=== PATIENT | female | born 1990 | race Caucasian/White ===

== ENCOUNTER 2020-09-22 20:43 | Emergency (ER) | payer OTHER ==
[~2020-09-22] VITALS: Ht 165.1 cm; Wt 109.8 kg
[2020-09-22 20:45] VITALS: BP 114/65
--- NOTE | 2020-09-22 20:46 | NUR ---
PT TEO BLS. TAKEN TO BED 10
--- NOTE | 2020-09-22 21:02 | NUR ---
Dr. Mclean examining patient.
[2020-09-22] MEDS ORDERED: ALBUTEROL HFA MDI 90 MCG/ACTUATION 8 GM INH ONE (21:05)
--- NOTE | 2020-09-22 21:10 | NUR ---
PT C/O OF SOB SO SHE CALLED 911. PT RECEIVED POSITIVE COVID RESULTS YESTERDAY. SYMPTOMS INCLUDE N/V/D X 1 DAY AND DRY NONPRODUCTIVE COUGH, SORE THROAT DUE TO COUGHING. PT 02 SAT ON RA 96-97%. LUNG SOUNDS COARSE THROUGHOUT. PT DENIES CHEST PAIN. AFEBRILE. PT PLACED IN GOWN, BED IN LOWEST POSITION AND SIDERAIL UP X 1. NKA NO HX
--- NOTE | 2020-09-22 21:15 | NUR ---
X-RAY AT BEDSIDE
--- NOTE | 2020-09-22 21:41 | NUR ---
RESPIRATOPRY AT BEDSIDE
--- NOTE | 2020-09-22 21:43 | NUR ---
2x PUFF ADM ALONG W/ EDUCATION OF PROPER TECHNIQUES FOR MDI + MED SIDE EFFECTS
--- NOTE | 2020-09-22 22:10 | NUR ---
PT PLACED ON PORTABLE O2 SAT AND AMBULATED AROUND ROOM 10, O2 SAT STAYED AT 95-96%. MD ARAGON AWARE
[2020-09-22 22:41] VITALS: BP 117/69
--- NOTE | 2020-09-22 22:42 | NUR ---
Patient discharged with v/s stable. Written and verbal after care instructions given and explained. Patient alert, oriented and verbalized understanding of instructions. Ambulatory with steady gait. All questions addressed prior to discharge. ID band removed. Patient advised to follow up with PMD. Rx of ALBUTEROL INHALER, AZITHROMYCIN, AND GUAIFENESIN DM given. Patient educated on indication of medication including possible reaction and side effects. Opportunity to ask questions provided and answered.
== END 2020-09-22 22:42 | disposition home or self-care (01) ==
LOC: MED 20:43
DX: J18.9 Pneumonia, unspecified organism (principal); Z20.828 Contact with and (suspected) exposure to other viral communicable diseases
CPT/HCPCS: 71045; 94664; 99285

== ENCOUNTER 2022-05-05 14:40 | Emergency (ER) | payer OTHER ==
[~2022-05-05] VITALS: Ht 167.6 cm; Wt 101.7 kg
[2022-05-05 15:34] VITALS: BP 104/66
[2022-05-05] MEDS ORDERED: KETOROLAC 30 MG/ML VIAL IM ONE (15:45)
--- NOTE | 2022-05-05 16:10 | NUR ---
XRAY AT BEDSIDE
--- NOTE | 2022-05-05 16:10 | NUR ---
38YR OLD FEMALE BIB SELF C/O LEFT FOOT/ANKLE PAIN AND SWELLING X4DAYS. PAIN LEVEL 8/10. SWELLING AND SOME BRUISING TO AREA. PT STATES WAS SCRATCHING SKIN WHEN EZEMA HAD A BREAK OUT AND BROKE THE SKIN. SINCE THEN FOOT HAS BEEN GETTING SWOLLEN AND PAINFUL. DENIES ANY TRAUMA OR INJURY. GOOD SENSATION AND CMS TO EXTREMITY. PT A&OX4. LEG IS SIGHTLY ELEVATED IN BED. SIDE RAILS UP X2 BED AT LOWEST POSITION. NKDA NO MED HX
[2022-05-05] MEDS ORDERED: SULF-58 PO (16:31)
[2022-05-05 16:42] VITALS: BP 107/55
--- NOTE | 2022-05-05 16:43 | NUR ---
Chart checked and completed. The patient's care was reviewed and supervised by Beatriz Sen RN.
== END 2022-05-05 16:42 | disposition home or self-care (01) ==
LOC: MED 14:40
DX: S90.512A Abrasion, left ankle, initial encounter (principal); L03.116 Cellulitis of left lower limb; Z79.2 Long term (current) use of antibiotics; X58.XXXA Exposure to other specified factors, initial encounter; Y92.89 Other specified places as the place of occurrence of the external cause; Y93.89 Activity, other specified; Y99.8 Other external cause status
CPT/HCPCS: 73610; 96372; 99283; J1885

== ENCOUNTER 2022-09-04 02:30 | Emergency (ER) | payer OTHER ==
[~2022-09-04] VITALS: Ht 165.1 cm; Wt 109.8 kg
[~2022-09-04 02:30] MED LIST: SULF-58 PO
[2022-09-04 02:36] VITALS: BP 127/77
--- NOTE | 2022-09-04 02:39 | NUR ---
PT AMBULATES TO BED 11 WITH STEADY GAIT
--- NOTE | 2022-09-04 03:00 | NUR ---
32/F BIB SELF C/C PT NEEDS MEDICATION FOR ECZEMA. REPORTS RUNNING OUT OF CURRENT MEDICATION. PMHX ECZEMA
[2022-09-04] MEDS ORDERED: KEN.1O TP (03:19)
[2022-09-04 03:34] VITALS: BP 127/77
--- NOTE | 2022-09-04 03:34 | NUR ---
Patient discharged with v/s stable. Written and verbal after care instructions given and explained. Patient alert, oriented and verbalized understanding of instructions. Ambulatory with steady gait. All questions addressed prior to discharge. ID band removed. Patient advised to follow up with PMD. Rx of KENALOG 0.1 given. Patient educated on indication of medication including possible reaction and side effects. Opportunity to ask questions provided and answered.
== END 2022-09-04 03:34 | disposition home or self-care (01) ==
LOC: MED 02:30
DX: L30.9 Dermatitis, unspecified (principal); Z79.899 Other long term (current) drug therapy
CPT/HCPCS: 99283

== ENCOUNTER 2022-10-28 23:56 | Emergency (ER) | payer OTHER ==
[~2022-10-28] VITALS: Ht 165.1 cm; Wt 106.6 kg
[~2022-10-28 23:56] MED LIST changes: +KEN.1O TP
[2022-10-29 00:13] VITALS: BP 123/74
--- NOTE | 2022-10-29 01:07 | NUR ---
COVID-19 and flu swabs collected and sent to lab.
--- NOTE | 2022-10-29 01:17 | NUR ---
PT TO BED #12
--- NOTE | 2022-10-29 01:30 | NUR ---
C/O fever x 3 days. Patient reported, had cough, congestion,fever, chills and sore throat for 3 days. PMHx: DENIES
[2022-10-29] MEDS ORDERED: ACET-10509 PO (01:52)
[2022-10-29] MEDS ORDERED: TAM75 PO (01:52)
[2022-10-29] MEDS ORDERED: ROBAC PO (01:52)
[2022-10-29 02:05] VITALS: BP 123/74
--- NOTE | 2022-10-29 02:05 | NUR ---
Patient discharged with v/s stable. Written and verbal after care instructions given and explained. Patient alert, oriented and verbalized understanding of instructions. Ambulatory with steady gait. All questions addressed prior to discharge. ID band removed. Patient advised to follow up with PMD. Rx of TYLENOL, TAMIFLU, GUAIFENESIN given. Patient educated on indication of medication including possible reaction and side effects. Opportunity to ask questions provided and answered.
== END 2022-10-29 02:05 | disposition home or self-care (01) ==
LOC: MED 23:56
DX: J10.1 Influenza due to other identified influenza virus with other respiratory manifestations (principal); Z20.822 Contact with and (suspected) exposure to COVID-19; Z79.899 Other long term (current) drug therapy
CPT/HCPCS: 99283

== ENCOUNTER 2023-05-02 08:08 | Emergency (ER) | payer OTHER ==
[~2023-05-02] VITALS: Ht 167.6 cm; Wt 112.5 kg
[~2023-05-02 08:08] MED LIST changes: +ACET-10509 PO; +ROBAC PO; +TAM75 PO
[2023-05-02 08:12] VITALS: BP 116/57; PULSE 76; RESP 20; TEMP 98; O2SAT 100
[2023-05-02] MEDS ORDERED: KEN.1O80 TP (08:55)
[2023-05-02] MEDS ORDERED: CREA1CRE TP (08:55)
[2023-05-02] MEDS ORDERED: IBUP-2213 PO (08:56)
--- NOTE | 2023-05-02 09:07 | NUR ---
Patient discharged with v/s stable. Written and verbal after care instructions given and explained. Patient alert, oriented and verbalized understanding of instructions. Ambulatory with to home. All questions addressed prior to discharge. ID band removed. Patient advised to follow up with PMD. Rx of KENALOG, MOTIN, CETAPHIL given. Patient educated on indication of medication including possible reaction and side effects. Opportunity to ask questions provided and answered.
== END 2023-05-02 09:07 | disposition home or self-care (01) ==
LOC: MED 08:08
DX: R21 Rash and other nonspecific skin eruption (principal); L30.9 Dermatitis, unspecified; Z79.899 Other long term (current) drug therapy
CPT/HCPCS: 99283

== ENCOUNTER 2023-11-03 10:43 | Emergency (ER) | payer OTHER ==
[~2023-11-03] VITALS: Ht 167.6 cm; Wt 127.5 kg
[~2023-11-03 10:43] MED LIST changes: +CREA1CRE TP; +IBUP-2213 PO; +KEN.1O80 TP
[2023-11-03 10:56] VITALS: BP 109/68; PULSE 63; RESP 20; TEMP 97.6; O2SAT 97
[2023-11-03] MEDS ORDERED: KETOROLAC 30 MG/ML VIAL IM ONE (11:40)
[2023-11-03 11:45] LABS: APPEARANCE,URINE SL CLOUDY (CLEAR); BILIRUBIN,URINE NEGATIVE (NEGATIVE); BLOOD, URINE NEGATIVE (NEGATIVE); COLOR,URINE YELLOW (YELLOW); LEUKOCYTE ESTERASE ,URINE 2+ (NEGATIVE); NITRITE, URINE NEGATIVE (NEGATIVE); PROTEIN,URINE NEGATIVE (NEGATIVE); UGLUCOSE NEGATIVE (NEGATIVE); UROBILINOGEN,URINE 0.2 EU/dL (0.2 - 1)
[2023-11-03 11:48] LABS: RBC,URINE 0 /HPF (0-5)
[2023-11-03 11:49] LABS: BACTERIA,URINE 2+ /HPF (None Seen); MUCUS,URINE None Seen /LPF (None Seen); SQUAMOUS EPITHELIAL CELL,UR 0-3 (FEW) /LPF (0-3 (FEW))
[2023-11-03] MEDS ORDERED: NAPR-1704 PO (11:59)
[2023-11-03] MEDS ORDERED: CYCL-711 PO (11:59)
[2023-11-03] MEDS ORDERED: CAPS1ADH5 TP (11:59)
[2023-11-03 12:14] VITALS: BP 134/76; PULSE 84; RESP 20; TEMP 98.2; O2SAT 98
== END 2023-11-03 12:09 | disposition home or self-care (01) ==
LOC: MED 10:43
DX: S39.012A Strain of muscle, fascia and tendon of lower back, initial encounter (principal); X58.XXXA Exposure to other specified factors, initial encounter; Y93.89 Activity, other specified; Y92.89 Other specified places as the place of occurrence of the external cause; Y99.8 Other external cause status
CPT/HCPCS: 81001; 81025; 87086; 96372; 99283; J1885

== ENCOUNTER 2024-04-17 13:37 | Emergency (ER) | payer BC, OTHER ==
[~2024-04-17] VITALS: Ht 165.1 cm; Wt 119.3 kg
[~2024-04-17 13:37] MED LIST changes: +CAPS1ADH5 TP; +CYCL-711 PO; +NAPR-1704 PO
[2024-04-17 14:06] VITALS: BP 147/75; PULSE 64; RESP 18; TEMP 97.7; O2SAT 98
[2024-04-17] MEDS: ONDANSETRON 4 MG ODT PO ONE (15:34)
[2024-04-17] MEDS ORDERED: BEN10 PO (15:54)
[2024-04-17] MEDS ORDERED: ONDA-188 SL (15:54)
== END 2024-04-17 16:23 | disposition home or self-care (01) ==
LOC: MED 13:37
DX: A08.4 Viral intestinal infection, unspecified (principal); Z79.899 Other long term (current) drug therapy
CPT/HCPCS: 99283; Q0162